=== PATIENT | female | born 1990 | race Caucasian/White ===

== ENCOUNTER 2017-01-25 11:33 | Emergency (ER) | payer BC, MEDICAID ==
--- NOTE | 2017-01-25 11:50 | PD ---
HPI Chief Complaint: Complaint Time Seen by Provider: 11:46 Travel History International Travel<30 days: No Contact w/Intl Traveler<30days: No Traveled to known affect area: No History of Present Illness HPI 27-year-old female with no significant medical history presents to emergency department for evaluation of urinary urgency, burning, suprapubic pain that started today. Patient states she gets frequent UTIs and the symptoms are consistent with that. Denies any fever or chills. No vaginal discharge or bleeding. Patient has no other symptoms to report. PFSH Past Medical History Medical History: Denies Significant Hx Diminished Hearing: No LMP: 01/21/17 : 2 Para: 2 Social History Alcohol Use: No Tobacco Use: No Substance Use: No Allergies-Medications (Allergen,Severity, Reaction): Coded Allergies: penicillin G (Unverified Allergy, Unknown, Anaphylaxis, 01/25/17) Reported Meds & Prescriptions Reported Meds & Active Scripts Active Macrobid (Nitrofurantoin Monoh/Nitrofur Macro) 100 Mg Cap 100 Mg PO BID 10 Days Review of Systems Except as stated in HPI: all other systems reviewed are Neg Physical Exam Narrative GENERAL: Well-nourished, well-developed female patient, ambulatory no acute distress. SKIN: Focused skin assessment warm/dry. HEAD: Normocephalic. EYES: No scleral icterus. No injection or drainage. NECK: Supple, trachea midline. No JVD or lymphadenopathy. CARDIOVASCULAR: Regular rate and rhythm without murmurs, gallops, or rubs. RESPIRATORY: Breath sounds equal bilaterally. No accessory muscle use. GASTROINTESTINAL: Abdomen soft, nondistended. Suprapubic tenderness to palpation. MUSCULOSKELETAL: No cyanosis, or edema. BACK: Nontender without obvious deformity. No CVA tenderness. Data Data Orders Orders Urinalysis - C+S If Indicated (01/25/17 11:49) Ed Urine Pregnancytest Poc (01/25/17 11:49) Urine Culture (01/25/17 11:50) Ed Discharge Order (01/25/17 12:40) Labs Laboratory Tests Test 01/25/17 11:50 Urine Color DARK-ORANGE Urine Turbidity HAZY Urine pH 6.0 Urine Specific [place] 1.024 Urine Protein TRACE mg/dL Urine Glucose (UA) NEG mg/dL Urine Ketones NEG mg/dL Urine Occult Blood SMALL Urine Nitrite POS Urine Bilirubin NEG Urine Urobilinogen 2.0 MG/DL Urine Leukocyte Esterase LARGE Urine RBC 3 /hpf Urine WBC 61 /hpf Urine Squamous Epithelial Cells 2 /hpf Urine Bacteria OCC /hpf Urine Mucus MOD /lpf Microscopic Urinalysis Comment CULTURE INDICATED MDM Medical Decision Making Medical Screen Exam Complete: Yes Emergency Medical Condition: Yes Medical Record Reviewed: Yes Differential Diagnosis Cystitis versus vaginitis versus urethritis Narrative Course 27-year-old female presents to the emergency department for evaluation urinary symptoms. Patient appears without distress. She does have suprapubic patient. Laboratory Tests Test 01/25/17 11:50 Urine Color DARK-ORANGE Urine Turbidity HAZY Urine pH 6.0 Urine Specific [place] 1.024 Urine Protein TRACE mg/dL Urine Glucose (UA) NEG mg/dL Urine Ketones NEG mg/dL Urine Occult Blood SMALL Urine Nitrite POS Urine Bilirubin NEG Urine Urobilinogen 2.0 MG/DL Urine Leukocyte Esterase LARGE Urine RBC 3 /hpf Urine WBC 61 /hpf Urine Squamous Epithelial Cells 2 /hpf Urine Bacteria OCC /hpf Urine Mucus MOD /lpf Microscopic Urinalysis Comment CULTURE INDICATED Patient will be started on Macrobid. She is encouraged to follow-up with primary care provider and return immediately with any acute worsening symptoms. Diagnosis Primary Impression: UTI (urinary tract infection) Qualified Codes: N30.00 - Acute cystitis without hematuria Referrals: Primary Care Physician Patient Instructions: General Instructions, Urinary Tract Infection in Women ( ED) Additional Instructions: Maintain adequate oral hydration Follow-up with a primary care provider Return immediately to the emergency department with any acute worsening symptoms Med/Other Pt SpecificInfo: Prescription(s) given Scripts Nitrofurantoin Monohydrate Macrocrystals (Macrobid) 100 Mg Cap 100 MG PO BID for Infection for 10 Days, #20 CAP 0 Refills Prov: Rachana Anne 01/25/17 Disposition: 01 DISCHARGE HOME Condition: Stable Rachana Anne Jan 25, 2017 11:50
[2017-01-25 12:00] VITALS: BP 123/80; PULSE 82; RESP 16; TEMP 98.2; O2SAT 98
[2017-01-25 12:20] LABS: BACTERIA, URINE OCC /hpf; BILIRUBIN, URINE NEG (NEG); BLOOD, URINE SMALL (NEG); GLUCOSE,URINE NEG (NEG); KETONE, URINE NEG (NEG); MUCUS URINE MOD /lpf (OCC); NITRITE,URINE POS (NEG); SQUAMOUS EPITHELIAL CELL URINE 2 /hpf (0-5); URINE COLOR DARK-ORANGE (YELLW/STRAW); URINE LEUKOCYTE ESTERASE LARGE (NEG)
[2017-01-25] MEDS ORDERED: MACR100C2 PO (12:42)
== END 2017-01-25 13:37 | disposition home or self-care (01) ==
LOC: NEPD 11:33
DX: N39.0 Urinary tract infection, site not specified (principal); B96.20 Unspecified Escherichia coli [E. coli] as the cause of diseases classified elsewhere; Z88.0 Allergy status to penicillin
CPT/HCPCS: 81001; 84703; 87077; 87086; 87186; 99284

== ENCOUNTER 2017-02-13 09:39 | Emergency (ER) | payer SELFPAY ==
[~2017-02-13] VITALS: Ht 160 cm; Wt 57.5 kg
[~2017-02-13 09:39] MED LIST: MACR100C2 PO
[2017-02-13 09:41] VITALS: BP 122/77; PULSE 95; RESP 14; TEMP 98; O2SAT 97
--- NOTE | 2017-02-13 11:13 | PD ---
HPI Chief Complaint: Cold / Flu Symptoms Time Seen by Provider: 10:41 Travel History International Travel<30 days: No Contact w/Intl Traveler<30days: No Traveled to known affect area: No History of Present Illness HPI 27-year-old female presents to the ED for evaluation 6 day history of body aches, headache, fever, sinus congestion, clear rhinorrhea, nonproductive cough , nausea. Gradual onset. Patient states that she measured a fever of 102.0. Fever resolved x 2 days. She denies ear pain, dizziness. She endorses sick contacts, states that a friends son was sick. She denies risk of . She denies receiving this years flu vaccine. PFSH Past Medical History Diminished Hearing: No ?: Not LMP: 17th DEC : 2 Para: 2 Social History Alcohol Use: No Tobacco Use: No Substance Use: No Allergies-Medications (Allergen,Severity, Reaction): Coded Allergies: penicillin G (Verified Allergy, Unknown, Anaphylaxis, 02/13/17) Reported Meds & Prescriptions Reported Meds & Active Scripts Active Zofran Odt (Ondansetron Odt) 4 Mg Tab 4 Mg SL Q8HR PRN Flonase Nasal [place] (Fluticasone Nasal [place]) 50 Mcg/Act [place] 100 Mcg EACH NARE BID 7 Days Doxycycline Hyclate 100 Mg Cap 100 Mg PO BID Review of Systems Except as stated in HPI: all other systems reviewed are Neg Physical Exam Narrative GENERAL: Well-nourished, well-developed white female no acute distress. SKIN: Warm and dry. HEAD: Normocephalic. Atraumatic. Tender to palpation of the facial sinuses. EYES: No scleral icterus. No injection or drainage. PERRLA. EOMI. ENT: Pearly murdock tympanic membranes bilaterally with bilateral serous effusions.. Nasal mucosa is moist. Oropharynx without erythema, edema or exudate. NECK: Supple, trachea midline. No JVD or lymphadenopathy. CARDIOVASCULAR: Regular rate and rhythm without murmurs, gallops, or rubs. RESPIRATORY: Breath sounds clear and equal bilaterally. No accessory muscle use. GASTROINTESTINAL: Abdomen soft, non-tender, nondistended. + Bowel sounds MUSCULOSKELETAL: No cyanosis, or edema. BACK: Nontender without obvious deformity. No CVA tenderness. Data Data Last Documented VS Vital Signs Date Time Temp Pulse Resp B/P (MAP) Pulse Ox O2 Delivery O2 Flow Rate FiO2 02/13/17 12:14 02/13/17 09:41 98.0 95 14 97 Orders Orders Influenzae A/B Antigen (02/13/17 10:42) Ed Discharge Order (02/13/17 12:00) [facility] Medical Decision Making Medical Screen Exam Complete: Yes Emergency Medical Condition: Yes Differential Diagnosis Sinusitis versus viral syndrome versus influenza versus other Narrative Course 27-year-old female presents to the ED for evaluation 6 day history of body aches, headache, fever, sinus congestion, clear rhinorrhea, nonproductive cough , nausea. Patient states that she measured a fever of 102.0. Fever resolved x 2 days. Patient afebrile on presentation. Physical exam reveals a nontoxic- appearing white female in no acute distress. She has tenderness to palpation of the facial sinuses and bilateral serous effusions of the ear. Exam otherwise unremarkable. Flu swab negative. This is sinusitis. The patient is prescribed doxycycline 100 mg twice a day 10 days, Flonase and a few doses of Zofran. She is instructed to take every antibiotic pill until they are all gone , follow-up with ENT. We discussed reasons to return to the ED. She indicated understanding ending of the instructions and is agreeable to the care plan. Patient is stable and discharged home. Diagnosis Primary Impression: Sinusitis Qualified Codes: J32.1 - Chronic frontal sinusitis Referrals: Ear / Nose / Throat Specialist Patient Instructions: General Instructions, Sinusitis (ED) Additional Instructions: Rest, hydrate. Take every antibiotic pill until they're all gone. Flonase intranasally daily as prescribed. Zofran as needed, as prescribed. Follow up with the billet shearer. Return to the ED for any urgent or emergent medical condition. Med/Other Pt SpecificInfo: Prescription(s) given Scripts Ondansetron Odt (Zofran Odt) 4 Mg Tab 4 MG SL Q8HR Y for Nausea/Vomiting, #5 TAB 0 Refills Prov: Chavo Gomes MD 02/13/17 Fluticasone Nasal [place] (Flonase Nasal [place]) 50 Mcg/Act [place] 100 MCG EACH NARE BID for Allergies for 7 Days, #1 BOTTLE 0 Refills Prov: Chavo Gomes MD 02/13/17 Doxycycline Hyclate (Doxycycline Hyclate) 100 Mg Cap 100 MG PO BID for Infection, #20 CAP 0 Refills Prov: Chavo Gomes MD 02/13/17 Disposition: 01 DISCHARGE HOME Condition: Stable Jovana Johnson Feb 13, 2017 11:13
[2017-02-13] MEDS ORDERED: ZOFR4TAB3 SL (11:58)
[2017-02-13] MEDS ORDERED: FLUT1SPR5 EACH NARE (11:58)
[2017-02-13] MEDS ORDERED: DOXY100C PO (11:58)
== END 2017-02-13 12:14 | disposition home or self-care (01) ==
LOC: NEPK 09:39
DX: J32.1 Chronic frontal sinusitis (principal)
CPT/HCPCS: 87804; 99284

== ENCOUNTER 2017-03-20 14:13 | Emergency (ER) | payer SELFPAY ==
[~2017-03-20] VITALS: Ht 160 cm; Wt 57.5 kg
[~2017-03-20 14:13] MED LIST changes: +DOXY100C PO; +FLUT1SPR5 EACH NARE; -MACR100C2 PO; +ZOFR4TAB3 SL
[2017-03-20 14:14] VITALS: BP 155/89; PULSE 102; RESP 18; TEMP 98.8; O2SAT 97
--- NOTE | 2017-03-20 14:48 | PD ---
HPI Chief Complaint: Complaint Time Seen by Provider: 14:31 Travel History International Travel<30 days: No Contact w/Intl Traveler<30days: No Traveled to known affect area: No History of Present Illness HPI 27-year-old female presents for evaluation of dysuria and increased urinary frequency. The patient was diagnosed with UTI in January 2017, prescribed Macrobid. She was also diagnosed with sinusitis in February, prescribed doxycycline. Both antibiotics made her nauseous and vomit so she quit using them. She has had intermittent dysuria for the past few weeks. She has been occasionally taking half a tablet of 1 or the other of her antibiotics and her symptoms have persisted which prompted evaluation. She has been having a burning sensation when she urinates, unrelieved with [id number] Azo. Denies vaginal bleeding or discharge, flank pain, fevers, nausea or vomiting, diarrhea or constipation. She has no other complaints at this time. PFSH Past Medical History Diminished Hearing: No ?: Not LMP: 03/11/2017 : 2 Para: 2 Social History Alcohol Use: No Tobacco Use: No Substance Use: No Allergies-Medications (Allergen,Severity, Reaction): Coded Allergies: penicillin G (Verified Allergy, Unknown, Anaphylaxis, 03/20/17) Reported Meds & Prescriptions Reported Meds & Active Scripts Active Zofran Odt (Ondansetron Odt) 4 Mg Tab 4 Mg SL Q12HR PRN Bactrim DS (Sulfamethoxazole-Trimethoprim) 800-160 Mg Tab 1 Tab PO BID Review of Systems Except as stated in HPI: all other systems reviewed are Neg Physical Exam Narrative GENERAL: Well-developed well-nourished female in no acute distress SKIN: Warm and dry. HEAD: Atraumatic. Normocephalic. EYES: Pupils equal and round. No scleral icterus. No injection or drainage. ENT: No nasal bleeding or discharge. Mucous membranes pink and moist. NECK: Trachea midline. No JVD. CARDIOVASCULAR: Regular rate and rhythm. No murmur appreciated. RESPIRATORY: No accessory muscle use. Clear to auscultation. Breath sounds equal bilaterally. GASTROINTESTINAL: Abdomen soft, mild suprapubic tenderness without guarding, no CVA tenderness. Data Data Last Documented VS Vital Signs Date Time Temp Pulse Resp B/P (MAP) Pulse Ox O2 Delivery O2 Flow Rate FiO2 2/13/18 14:14 98.8 102 18 155/89 (111) 97 Room Air Orders Orders Urinalysis - C+S If Indicated (03/20/17 14:27) Ed Urine Pregnancytest Poc (03/20/17 14:27) Urine Culture (03/20/17 14:35) Ed Discharge Order (03/20/17 15:12) Labs Laboratory Tests Test 03/20/17 14:35 Urine Color DARK-BROWN Urine Turbidity HAZY Urine pH 6.0 Urine Specific [place] 1.017 Urine Protein TRACE mg/dL Urine Glucose (UA) NEG mg/dL Urine Ketones NEG mg/dL Urine Occult Blood SMALL Urine Nitrite POS Urine Bilirubin NEG Urine Urobilinogen 4.0 MG/DL Urine Leukocyte Esterase LARGE Urine RBC 11 /hpf Urine WBC 132 /hpf Urine WBC Clumps OCC Urine Squamous Epithelial Cells 4 /hpf Urine Bacteria MANY /hpf Urine Hyaline Casts 2 /lpf Urine Mucus MOD /lpf Microscopic Urinalysis Comment CULTURE INDICATED MDM Medical Decision Making Medical Screen Exam Complete: Yes Emergency Medical Condition: Yes Medical Record Reviewed: Yes Differential Diagnosis Cystitis, urethritis, pyelonephritis, pelvic inflammatory disease Narrative Course Urinalysis was performed today consistent with cystitis. The patient is being discharged with Bactrim as well as Zofran for any associated nausea. Diagnosis Primary Impression: Cystitis Additional Instructions: Medication as prescribed. Stay well hydrated well-nourished. Return for any acutely new or worsening symptoms. Med/Other Pt SpecificInfo: Prescription(s) given Scripts Ondansetron Odt (Zofran Odt) 4 Mg Tab 4 MG SL Q12HR Y for Nausea/Vomiting, #14 TAB 0 Refills Prov: Omid Montenegro MD 03/20/17 Sulfamethoxazole-Trimethoprim (Bactrim DS) 800-160 Mg Tab 1 TAB PO BID for Infection, #14 TAB 0 Refills Prov: Omid Montenegro MD 03/20/17 Disposition: 01 DISCHARGE HOME Condition: Stable Doni Miranda Mar 20, 2017 14:48
[2017-03-20 15:06] LABS: BACTERIA, URINE MANY /hpf; BILIRUBIN, URINE NEG (NEG); BLOOD, URINE SMALL (NEG); GLUCOSE,URINE NEG (NEG); HYALINE CAST, URINE 2 /lpf (RARE); KETONE, URINE NEG (NEG); MUCUS URINE MOD /lpf (OCC); NITRITE,URINE POS (NEG); SQUAMOUS EPITHELIAL CELL URINE 4 /hpf (0-5); URINE COLOR DARK-BROWN (YELLW/STRAW); URINE LEUKOCYTE ESTERASE LARGE (NEG); WHITE BLOOD CELL CLUMPS OCC
[2017-03-20] MEDS ORDERED: ZOFR4TAB3 SL (15:11)
[2017-03-20] MEDS ORDERED: BACT800T5 PO (15:11)
== END 2017-03-20 15:22 | disposition home or self-care (01) ==
LOC: NEPK 14:13
DX: N30.90 Cystitis, unspecified without hematuria (principal); B96.20 Unspecified Escherichia coli [E. coli] as the cause of diseases classified elsewhere; Z88.0 Allergy status to penicillin
CPT/HCPCS: 81001; 84703; 87077; 87086; 87186; 99283

== ENCOUNTER 2017-06-15 07:50 | Emergency (ER) | payer SELFPAY ==
[~2017-06-15] VITALS: Ht 157.5 cm; Wt 56.5 kg
[~2017-06-15 07:50] MED LIST changes: +BACT800T5 PO; -DOXY100C PO; -FLUT1SPR5 EACH NARE
[2017-06-15 07:52] VITALS: BP 128/75; PULSE 78; RESP 16; TEMP 97.8; O2SAT 99
--- NOTE | 2017-06-15 08:10 | PD ---
HPI Chief Complaint: Complaint Time Seen by Provider: 08:07 Travel History International Travel<30 days: No Contact w/Intl Traveler<30days: No Traveled to known affect area: No History of Present Illness HPI 27-year-old white female presents emergency department we will complains of UTI symptoms are last few days. She is taking [id number] Azo. She denies any fever chills, nausea, vomiting, abdominal pain, or back pain. She states that she has had UTIs in the past and that this feels similar. No vaginal discharge. Denies . Symptoms are mild to moderate. Exacerbated with urination. No alleviating factors. History Past Medical Histgory Narrative Medical UTIs Tetanus Vaccination: < 5 Years LMP: MERINA, 06/08/17 Past Surgical History Surgical History: No Previous Surgery Social History Alcohol Use: No Tobacco Use: No Allergies-Medications (Allergen,Severity, Reaction): Coded Allergies: penicillin G (Verified Allergy, Unknown, Anaphylaxis, 06/15/17) Reported Meds & Prescriptions Reported Meds & Active Scripts Active No Active Prescriptions or Reported Medications Review of Systems Except as stated in HPI: all other systems reviewed are Neg Physical Exam Narrative GENERAL: Well-developed, well-nourished in no acute distress. Nontoxic appearing. HEAD: Normocephalic, atraumatic. EYES: Pupils equal round and reactive. Extraocular motions intact. No scleral icterus. No injection or drainage. ENT: TMs clear without erythema. The external auditory canals clear. Nose: clear . Posterior pharynx is pink and moist. No tonsillar edema or exudate. Uvula midline. Airway patent. NECK: Trachea midline.Supple, nontender, moves head freely. No central bony tenderness or spasm. CARDIOVASCULAR: Regular rate and rhythm without murmurs, gallops, or rubs. RESPIRATORY: Clear to auscultation. Breath sounds equal bilaterally. No wheezes , rales, or rhonchi. GASTROINTESTINAL: Abdomen soft, non-tender, nondistended. No hepato-splenomegaly , or palpable masses. No guarding. EXTREMITIES: No clubbing, cyanosis, or edema. No joint tenderness, effusion, or edema noted. BACK: Nontender without deformity or crepitance. No flank tenderness. Data Data Last Documented VS Vital Signs Date Time Temp Pulse Resp B/P (MAP) Pulse Ox O2 Delivery O2 Flow Rate FiO2 5/11/18 07:52 97.8 78 16 128/75 (92) 99 MDM Medical Screen Exam Complete: Yes Emergency Medical Condition: No Differential Diagnosis MDM: Moderate Differential diagnoses: Pyelonephritis, UTI, vaginitis Narrative Course A medical screening exam was performed: At the time of evaluation the presenting medical condition was determined not to be of an emergent nature. The patient was given the option of receiving additional care, but declined. Patient was given options for additional community resources from which to obtain care. The Patient Has Been advised to seek medical attention for their presenting complaint. The patient has been advised to return to the ER at any time if an emergent condition develops. Primary Impression: Encounter for medical screening examination Scripts No Active Prescriptions or Reported Meds Condition: Steve Christianson June 15, 2017 08:10
== END 2017-06-15 08:22 | disposition left against medical advice (07) ==
LOC: NEPD 07:50
DX: R39.9 Unspecified symptoms and signs involving the genitourinary system (principal)
CPT/HCPCS: 99281